=== PATIENT | female | born 1950 | race American Indian/Alaskan Native ===

== ENCOUNTER 2017-09-27 13:00 | Outpatient (CLI) | payer BC ==
--- NOTE | 2017-09-27 16:23 | XRay Report ---
Bilateral knees: Bilateral pain. Routine standing views demonstrate minimal periarticular spurring involving the medial compartment of both knees with mild narrowing of the medial joint spaces bilaterally. The articular surfaces are smooth and there is good alignment of both knees. The bones are well-mineralized. There are no joint effusions however there is soft tissue swelling of the medial right knee. Impression: 1. Mild bilateral medial degenerative joint changes. 2. Medial swelling of the right knee.
== END 2017-09-27 13:01 | disposition home or self-care (01) ==
LOC: SPVIMAG 13:00
PROVIDERS: ATTEND Orthopaedic Surgery
DX: M17.0 Bilateral primary osteoarthritis of knee (principal)